=== PATIENT | female | born 1950 | race African-American/Black ===

== ENCOUNTER 2018-06-04 15:22 | Observation (INO) ==
[2018-06-04] MEDS ORDERED: INSULIN REGULAR 100 UNIT/ML IV STA (15:42)
[2018-06-04] MEDS ORDERED: SODIUM CHLORIDE 0.9% 1,000 ML IV STA (15:42)
[2018-06-04] MEDS ORDERED: ONDANSETRON 4 MG/2 ML VIAL IV STA (15:42)
[2018-06-04 16:02] LABS: Basophils % 0.6 % (0.0-0.8); Eosinophils # 0.1 10*3/uL (0.0-0.87); Eosinophils % 1.7 % (0.00-10.9); Hematocrit 33.1 VOL% (35.7-47.0); Hemoglobin 10.8 GM/DL (12.0-16.0); Immature Granulocytes % 0.4 %; Immature Granulocytes Absolute 0.03 #; Lymphocytes # 2.4 10*3/uL (1.4-4.0); Lymphocytes % 33.7 % (21.3-54.2); Mean Corpuscular HGB Conc 32.6 GM/DL (32-36); Mean Corpuscular Hemoglobin 29 PG (27-34); Mean Corpuscular Volume 88.5 FL (87-102); Mean Platelet Volume 10.4 FL (9.6-12.0); Monocytes # 0.5 10*3/uL (0.11-0.8); Monocytes % 6.7 % (1.7-12.7); Neutrophils # 4.1 10*3/uL (1.4-7.4); Neutrophils % 56.9 % (38.7-73.9); Platelet Count 293 T/CUMM (130-400); Red Blood Count 3.74 MC/CUMM (3.8-5.5); Red Cell Distribution Width 13.2 % (9.3-17.3); White Blood Count 7.1 T/CUMM (4-12)
[2018-06-04 16:24] LABS: Alanine Aminotransferase 29 U/L (13-56); Albumin 3.1 G/DL (3.4-5.0); Alkaline Phosphatase 148 U/L (45-117); Amylase 397 U/L (25-115); Aspartate Amino Transferase 37 U/L (0-37); Bilirubin,Total < 0.39 MG/DL (0.2-1.0); Blood Urea Nitrogen 55 MG/DL (7-18); Calcium 8.2 MG/DL (8.5-10.1); Glucose 431 MG/DL (74-106); Osmolality,Calculated 302.1 MOS/KG (273-304); Sodium 135 MMOL/L (136-145); Total Protein 7.9 G/DL (6.4-8.3)
[2018-06-04] MEDS ORDERED: GLUCAGON 1 MG VIAL IM PRN ×2 (18:04→20:21)
[2018-06-04] MEDS ORDERED: DEXTROSE 50% 25 GM/50 ML VIAL IV PRN ×2 (18:04→20:21)
[2018-06-04] MEDS ORDERED: MORPHINE 4 MG/1 ML VIAL IV PRN (20:21)
[2018-06-04] MEDS ORDERED: ACETAMINOPHEN 325 MG TABLET PO PRN (20:21)
[2018-06-04] MEDS ORDERED: LACTULOSE 20 GM/30 ML UDCUP PO PRN (20:21)
[2018-06-04] MEDS ORDERED: ALBUTEROL 2.5 MG/3 ML NEB RESP TX PRN (20:21)
[2018-06-04] MEDS ORDERED: ONDANSETRON 4 MG/2 ML VIAL IV PRN (20:21)
[2018-06-04] MEDS ORDERED: NITROGLYCERIN SL 0.4 MG TABLET SL PRN (20:21)
[2018-06-04] MEDS: BUDESONIDE 0.25 MG/2 ML NEB RESP TX SCH (21:23)
[2018-06-04] MEDS: INSULIN REGULAR 100 UNIT/ML SUBCUT SCH ×2 (21:57→23:46)
[2018-06-04] MEDS: INSULIN GLARGINE 100 UNIT/ML SUBCUT SCH (21:57)
[2018-06-04] MEDS: OMEGA 3 ACID ETHYL ESTERS 1 GM CAPSULE PO SCH (21:58)
[2018-06-04] MEDS: POTASSIUM CHLORIDE 20 MEQ TABLET PO SCH (21:58)
[2018-06-04] MEDS: SODIUM CHLORIDE 0.9% 1,000 ML IV SCH (21:58)
[2018-06-04] MEDS: TAMSULOSIN 0.4 MG CAPSULE PO SCH (21:59)
[2018-06-04] MEDS: DOCUSATE SODIUM 100 MG CAPSULE PO SCH (21:59)
[2018-06-04] MEDS: CARVEDILOL 12.5 MG TABLET PO SCH (21:59)
[2018-06-04] MEDS: GLIMEPIRIDE 4 MG TABLET PO SCH (21:59)
[2018-06-04] MEDS: QUEtiapine 100 MG TABLET PO SCH (21:59)
[2018-06-04] MEDS: oxyCODONE/ACETAMINOPHEN 5-325 MG TABLET PO PRN (23:45)
[2018-06-05 00:09] LABS: Apearance,Urine CLEAR (Clear); Bacteria,Urine Occasional /HPF (Few); Bilirubin,Urine Negative (Negative); Blood, Urine Small mg/dL (Negative); Glucose,Urine (UA) >=500 mg/dL (Negative); Hyaline Casts,Urine 1 /LPF (0-3); Ketones,Urine Negative (Negative); Nitrite,Urine Negative (Negative); Protein,Urine 100 MG/DL; RBC,Urine 1 /HPF (0-4); Squamous Epithelial Cell,Urine Occasional /HPF (0-10); Urine Color Straw (Yellow); Urine Specific Gravity 1.008 (1.001-1.035); Urine Urobilinogen < 2.0 EU/DL (0.2-1.0); WBC,Urine 2 /HPF (0-6)
[2018-06-05 06:03] LABS: Basophils % 0.4 % (0.0-0.8); Eosinophils # 0.3 10*3/uL (0.0-0.87); Eosinophils % 4.5 % (0.00-10.9); Hematocrit 30.1 VOL% (35.7-47.0); Hemoglobin 9.7 GM/DL (12.0-16.0); Immature Granulocytes % 0.3 %; Immature Granulocytes Absolute 0.02 #; Lymphocytes # 3.4 10*3/uL (1.4-4.0); Lymphocytes % 46.6 % (21.3-54.2); Mean Corpuscular HGB Conc 32.2 GM/DL (32-36); Mean Corpuscular Hemoglobin 29 PG (27-34); Mean Corpuscular Volume 89.3 FL (87-102); Monocytes # 0.6 10*3/uL (0.11-0.8); Monocytes % 7.7 % (1.7-12.7); Neutrophils # 2.9 10*3/uL (1.4-7.4); Neutrophils % 40.5 % (38.7-73.9); Platelet Count 268 T/CUMM (130-400); Red Blood Count 3.37 MC/CUMM (3.8-5.5); Red Cell Distribution Width 13.3 % (9.3-17.3); White Blood Count 7.3 T/CUMM (4-12)
[2018-06-05] MEDS: SODIUM CHLORIDE 0.9% 1,000 ML IV SCH ×3 (06:23→21:23)
[2018-06-05] MEDS: INSULIN REGULAR 100 UNIT/ML SUBCUT SCH ×3 (06:24→18:07)
[2018-06-05 06:32] LABS: Alanine Aminotransferase 23 U/L (13-56); Albumin 2.7 G/DL (3.4-5.0); Alkaline Phosphatase 124 U/L (45-117); Aspartate Amino Transferase 25 U/L (0-37); Bilirubin,Total < 0.39 MG/DL (0.2-1.0); Blood Urea Nitrogen 47 MG/DL (7-18); Cholesterol 181 MG/DL (50-200); Glucose 209 MG/DL (74-106); HDL Cholesterol 44 MG/DL (40-60); Osmolality,Calculated 300.1 MOS/KG (273-304); Potassium 3.7 MMOL/L (3.5-5.1); Risk Ratio 4.11; Sodium 142 MMOL/L (136-145); Total Protein 6.7 G/DL (6.4-8.3); Triglycerides 187 MG/DL (2-150); VLDL CHOLESTEROL 37.4 MG/DL
[2018-06-05] MEDS: BUDESONIDE 0.25 MG/2 ML NEB RESP TX SCH ×2 (07:40→19:25)
[2018-06-05] MEDS: INSULIN LISPRO 100 UNIT/ML SUBCUT SCH ×3 (08:58→17:57)
[2018-06-05] MEDS: CARVEDILOL 12.5 MG TABLET PO SCH ×2 (08:58→17:57)
[2018-06-05] MEDS ORDERED: amLODIPine 5 MG TABLET PO SCH (09:00)
[2018-06-05] MEDS ORDERED: PANTOPRAZOLE 40 MG TABLET PO SCH (09:00)
[2018-06-05] MEDS: MULTIVITAMIN (CENTRUM) TABLET PO SCH (09:26)
[2018-06-05] MEDS: TORSEMIDE 20 MG TABLET PO SCH (09:26)
[2018-06-05] MEDS: CHOLECALCIFEROL 1,000 UNIT TABLET PO SCH (09:26)
[2018-06-05] MEDS: OMEGA 3 ACID ETHYL ESTERS 1 GM CAPSULE PO SCH ×2 (09:26→22:10)
[2018-06-05] MEDS: FERROUS SULFATE 325 MG TABLET PO SCH (09:26)
[2018-06-05] MEDS: FEXOFENADINE 180 MG TABLET PO SCH (09:26)
[2018-06-05] MEDS: ROSUVASTATIN 10 MG TABLET PO SCH (09:27)
[2018-06-05] MEDS: GLIMEPIRIDE 4 MG TABLET PO SCH ×2 (09:27→22:10)
[2018-06-05] MEDS: HYDROCODONE BITARTRATE 20 MG PO SCH (09:27)
[2018-06-05] MEDS: DOCUSATE SODIUM 100 MG CAPSULE PO SCH ×2 (09:27→22:09)
[2018-06-05] MEDS: FLUTICASONE 50 MCG NASAL SPRAY 16 GM BOTTLE BOTH NARES SCH (09:27)
[2018-06-05] MEDS: NITROGLYCERIN 0.4 MG/HR PATCH TRANSDERM SCH (09:27)
[2018-06-05] MEDS: PANTOPRAZOLE 40 MG TABLET PO SCH (09:27)
[2018-06-05] MEDS: ASPIRIN EC 81 MG TABLET PO SCH (09:27)
[2018-06-05] MEDS: TAMSULOSIN 0.4 MG CAPSULE PO SCH ×2 (09:27→22:09)
[2018-06-05] MEDS: POTASSIUM CHLORIDE 20 MEQ TABLET PO SCH ×2 (09:27→22:05)
[2018-06-05] MEDS: QUEtiapine 100 MG TABLET PO SCH (22:08)
[2018-06-05] MEDS: INSULIN GLARGINE 100 UNIT/ML SUBCUT SCH (22:10)
[2018-06-05] MEDS: oxyCODONE/ACETAMINOPHEN 5-325 MG TABLET PO PRN (23:43)
[2018-06-06] MEDS: INSULIN REGULAR 100 UNIT/ML SUBCUT SCH ×4 (01:15→17:12)
[2018-06-06] MEDS: SODIUM CHLORIDE 0.9% 1,000 ML IV SCH (05:03)
[2018-06-06] MEDS: BUDESONIDE 0.25 MG/2 ML NEB RESP TX SCH ×2 (07:41→19:00)
[2018-06-06] MEDS: TORSEMIDE 20 MG TABLET PO SCH (08:10)
[2018-06-06] MEDS: CARVEDILOL 12.5 MG TABLET PO SCH ×2 (08:10→17:12)
[2018-06-06] MEDS: FEXOFENADINE 180 MG TABLET PO SCH (08:11)
[2018-06-06] MEDS: PANTOPRAZOLE 40 MG TABLET PO SCH (08:11)
[2018-06-06] MEDS: INSULIN LISPRO 100 UNIT/ML SUBCUT SCH ×3 (08:11→17:12)
[2018-06-06] MEDS: ROSUVASTATIN 10 MG TABLET PO SCH (08:11)
[2018-06-06] MEDS: GLIMEPIRIDE 4 MG TABLET PO SCH ×2 (08:11→20:56)
[2018-06-06] MEDS: CHOLECALCIFEROL 1,000 UNIT TABLET PO SCH (08:11)
[2018-06-06] MEDS: DOCUSATE SODIUM 100 MG CAPSULE PO SCH ×2 (08:11→20:55)
[2018-06-06] MEDS: MULTIVITAMIN (CENTRUM) TABLET PO SCH (08:11)
[2018-06-06] MEDS: POTASSIUM CHLORIDE 20 MEQ TABLET PO SCH ×2 (08:11→20:56)
[2018-06-06] MEDS: TAMSULOSIN 0.4 MG CAPSULE PO SCH ×2 (08:11→20:56)
[2018-06-06] MEDS: FERROUS SULFATE 325 MG TABLET PO SCH (08:11)
[2018-06-06] MEDS: amLODIPine 5 MG TABLET PO SCH (08:11)
[2018-06-06] MEDS: ASPIRIN EC 81 MG TABLET PO SCH (08:11)
[2018-06-06] MEDS: OMEGA 3 ACID ETHYL ESTERS 1 GM CAPSULE PO SCH ×2 (08:11→20:55)
[2018-06-06] MEDS: HYDROCODONE BITARTRATE 20 MG PO SCH (08:12)
[2018-06-06] MEDS: FLUTICASONE 50 MCG NASAL SPRAY 16 GM BOTTLE BOTH NARES SCH (08:12)
[2018-06-06] MEDS: NITROGLYCERIN 0.4 MG/HR PATCH TRANSDERM SCH (08:18)
[2018-06-06 11:08] LABS: Calcium 8.3 MG/DL (8.5-10.1); Osmolality,Calculated 291.7 MOS/KG (273-304); Potassium 3.6 MMOL/L (3.5-5.1)
[2018-06-06] MEDS: QUEtiapine 100 MG TABLET PO SCH (20:55)
[2018-06-06] MEDS: INSULIN GLARGINE 100 UNIT/ML SUBCUT SCH (20:56)
[2018-06-06] MEDS: oxyCODONE/ACETAMINOPHEN 5-325 MG TABLET PO PRN (20:56)
[2018-06-07] MEDS: INSULIN REGULAR 100 UNIT/ML SUBCUT SCH ×3 (01:03→12:47)
[2018-06-07 05:59] LABS: Calcium 8.5 MG/DL (8.5-10.1); Potassium 3.5 MMOL/L (3.5-5.1)
[2018-06-07] MEDS: BUDESONIDE 0.25 MG/2 ML NEB RESP TX SCH (07:21)
[2018-06-07] MEDS: INSULIN LISPRO 100 UNIT/ML SUBCUT SCH (08:05)
[2018-06-07] MEDS: CHOLECALCIFEROL 1,000 UNIT TABLET PO SCH (08:10)
[2018-06-07] MEDS: OMEGA 3 ACID ETHYL ESTERS 1 GM CAPSULE PO SCH (08:11)
[2018-06-07] MEDS: FEXOFENADINE 180 MG TABLET PO SCH (08:11)
[2018-06-07] MEDS: TAMSULOSIN 0.4 MG CAPSULE PO SCH (08:13)
[2018-06-07] MEDS: TORSEMIDE 20 MG TABLET PO SCH (08:13)
[2018-06-07] MEDS: MULTIVITAMIN (CENTRUM) TABLET PO SCH (08:13)
[2018-06-07] MEDS: DOCUSATE SODIUM 100 MG CAPSULE PO SCH (08:13)
[2018-06-07] MEDS: PANTOPRAZOLE 40 MG TABLET PO SCH (08:13)
[2018-06-07] MEDS: GLIMEPIRIDE 4 MG TABLET PO SCH (08:14)
[2018-06-07] MEDS: ROSUVASTATIN 10 MG TABLET PO SCH (08:14)
[2018-06-07] MEDS: amLODIPine 5 MG TABLET PO SCH (08:14)
[2018-06-07] MEDS: CARVEDILOL 12.5 MG TABLET PO SCH (08:15)
[2018-06-07] MEDS: POTASSIUM CHLORIDE 20 MEQ TABLET PO SCH (08:15)
[2018-06-07] MEDS: FERROUS SULFATE 325 MG TABLET PO SCH (08:15)
[2018-06-07] MEDS: NITROGLYCERIN 0.4 MG/HR PATCH TRANSDERM SCH (08:15)
[2018-06-07] MEDS: ASPIRIN EC 81 MG TABLET PO SCH (08:15)
[2018-06-07] MEDS: FLUTICASONE 50 MCG NASAL SPRAY 16 GM BOTTLE BOTH NARES SCH (08:28)
[2018-06-07] MEDS: HYDROCODONE BITARTRATE 20 MG PO SCH (08:29)
[2018-06-07] MEDS ORDERED: MAGNESIUM SULF RIDER 2 GM in PREMIX 1 EACH IV ONE (08:52)
[2018-06-07 14:51] VITALS: BP 122/73
== END 2018-06-07 14:41 | disposition home health service (06) ==
LOC: EDUNIT# → N.ED 15:22 → N.EDINP 17:26 → INTOOBSV 17:26 → N.5E 18:58
PROVIDERS: ADMIT Internal Medicine; ATTEND Internal Medicine

== ENCOUNTER 2019-09-10 03:32 | Observation (INO) ==
[2019-09-10] MEDS ORDERED: SODIUM CHLORIDE 0.9% 1,000 ML IV STA (04:30)
[2019-09-10 04:51] LABS: ABG HCO3 24.1 MMOL/L (20-26); ABG Oxygen Saturation 96.5 % (95-100); ABG PCO2 37.1 MM HG (35-48); ABG PO2 88.6 MM HG (80-95); ABG TCO2 25.2 MMOL/L (23-27); Allen Test Positive; Pt O2 Delivery Device Room Air
[2019-09-10 05:11] LABS: Basophils % 0.4 % (0.0-0.8); Eosinophils % 0.2 % (0.00-10.9); Hematocrit 32.4 VOL% (35.7-47.0); Hemoglobin 10.4 GM/DL (12.0-16.0); Immature Granulocytes % 0.5 %; Immature Granulocytes Absolute 0.05 #; Lymphocytes # 1.7 10*3/uL (1.4-4.0); Mean Corpuscular HGB Conc 32.1 GM/DL (32-36); Mean Corpuscular Volume 88.5 FL (87-102); Mean Platelet Volume 12.2 FL (9.6-12.0); Monocytes % 7.2 % (1.7-12.7); Neutrophils % 73.7 % (38.7-73.9); Platelet Count 188 T/CUMM (130-400); Red Blood Count 3.66 MC/CUMM (3.8-5.5); Red Cell Distribution Width 13.4 % (9.3-17.3); White Blood Count 9.2 T/CUMM (4-12)
[2019-09-10 05:15] LABS: Albumin 2.7 G/DL (3.4-5.0); Bilirubin,Total 0.8 MG/DL (0.2-1.0); Calcium 8.6 MG/DL (8.5-10.1); Osmolality,Calculated 297.7 MOS/KG (273-304); Total Protein 7.8 G/DL (6.4-8.3)
[2019-09-10 05:16] LABS: Apearance,Urine CLEAR (Clear); Bacteria,Urine Occasional /HPF (Few); Bilirubin,Urine Negative (Negative); Blood, Urine Negative (Negative); Glucose,Urine (UA) >=500 mg/dL (Negative); Ketones,Urine Negative (Negative); Mucus,Urine Occasional /LPF (Occasional); Nitrite,Urine Negative (Negative); Protein,Urine 100 MG/DL; RBC,Urine 1 /HPF (0-4); Renal Epithelial Cells,Urine Occasional /HPF (<1); Squamous Epithelial Cell,Urine Occasional /HPF (0-10); Urine Color Yellow (Yellow); Urine Specific Gravity 1.017 (1.001-1.035); Urine Urobilinogen < 2.0 EU/DL (0.2-1.0); WBC,Urine 15 /HPF (0-6)
[2019-09-10] MEDS ORDERED: INSULIN REGULAR 100 UNIT/ML IV STA (05:20)
[2019-09-10] MEDS ORDERED: cefTRIAXone 1,000 MG in SODIUM CHLORIDE 0.9% 100 ML IV STA (05:22)
[2019-09-10] MEDS ORDERED: ACETAMINOPHEN 325 MG TABLET PO PRN (05:31)
[2019-09-10] MEDS ORDERED: ONDANSETRON 4 MG/2 ML VIAL IV PRN (05:31)
[2019-09-10] MEDS ORDERED: GLUCAGON 1 MG VIAL IM PRN (05:42)
[2019-09-10] MEDS ORDERED: DEXTROSE 50% 25 GM/50 ML SYRINGE IV PRN (05:42)
[2019-09-10] MEDS: GLIMEPIRIDE 4 MG TABLET PO SCH ×2 (09:07→17:33)
[2019-09-10] MEDS: INSULIN LISPRO 100 UNIT/ML SUBCUT SCH ×5 (09:07→23:18)
[2019-09-10] MEDS: INSULIN ASPART PROTAMINE/ASPART 70/30 100 UNIT/ML SUBCUT SCH ×3 (09:08→17:33)
[2019-09-10] MEDS: SODIUM CHLORIDE 0.9% 1,000 ML IV SCH ×4 (09:08→20:31)
[2019-09-10] MEDS: PANTOPRAZOLE 40 MG VIAL IV SCH (09:08)
[2019-09-10] MEDS ORDERED: METHOCARBAMOL 750 MG TABLET PO PRN (10:56)
[2019-09-10] MEDS ORDERED: KETOROLAC 15 MG/1 ML VIAL IV ONE (10:57)
[2019-09-10] MEDS ORDERED: INSULIN LISPRO 100 UNIT/ML SUBCUT ONE (10:57)
[2019-09-10] MEDS: DICLOFENAC 1% GEL 100 GM TUBE TOP SCH ×2 (11:57→23:35)
[2019-09-10] MEDS ORDERED: SKIN HEALING OINT (AQUAPHOR) 50 GM TUBE TOP PRN (15:37)
[2019-09-10] MEDS ORDERED: INSULIN GLARGINE 100 UNIT/ML SUBCUT SCH (21:00)
[2019-09-11] MEDS: INSULIN LISPRO 100 UNIT/ML SUBCUT SCH ×4 (02:09→15:14)
[2019-09-11] MEDS: SODIUM CHLORIDE 0.9% 1,000 ML IV SCH ×3 (05:08→15:14)
[2019-09-11] MEDS ORDERED: cefTRIAXone 1,000 MG in SYRINGE 1 EACH IV SCH (06:00)
[2019-09-11] MEDS: GLIMEPIRIDE 4 MG TABLET PO SCH (08:31)
[2019-09-11] MEDS: INSULIN ASPART PROTAMINE/ASPART 70/30 100 UNIT/ML SUBCUT SCH ×2 (08:36→12:43)
[2019-09-11 09:31] LABS: Basophils % 0.6 % (0.0-0.8); Eosinophils # 0.1 10*3/uL (0.0-0.87); Eosinophils % 1.4 % (0.00-10.9); Hematocrit 32.6 VOL% (35.7-47.0); Hemoglobin 10.5 GM/DL (12.0-16.0); Immature Granulocytes % 0.5 %; Immature Granulocytes Absolute 0.03 #; Lymphocytes # 2.2 10*3/uL (1.4-4.0); Mean Corpuscular HGB Conc 32.2 GM/DL (32-36); Mean Corpuscular Volume 89.6 FL (87-102); Mean Platelet Volume 11.2 FL (9.6-12.0); Monocytes % 7.1 % (1.7-12.7); Neutrophils % 55.4 % (38.7-73.9); Platelet Count 201 T/CUMM (130-400); Red Blood Count 3.64 MC/CUMM (3.8-5.5); Red Cell Distribution Width 13.4 % (9.3-17.3); White Blood Count 6.3 T/CUMM (4-12)
[2019-09-11] MEDS: DICLOFENAC 1% GEL 100 GM TUBE TOP SCH (09:33)
[2019-09-11] MEDS: PANTOPRAZOLE 40 MG VIAL IV SCH (09:33)
[2019-09-11 09:41] LABS: Calcium 7.8 MG/DL (8.5-10.1); Osmolality,Calculated 289.1 MOS/KG (273-304)
[2019-09-11 12:32] VITALS: BP 156/73
== END 2019-09-11 16:07 | disposition home or self-care (01) ==
LOC: EDUNIT# → EDBD → N.ED 03:32 → N.EDINP 03:32 → SUATTDRO 05:28 → N.EDINP 06:55 → N.3E 07:28
PROVIDERS: ADMIT Internal Medicine; ATTEND Internal Medicine